=== PATIENT | female | born 1960 | race Hispanic/Latino ===

== ENCOUNTER 2019-12-06 20:19 | Emergency (ER) | payer BC ==
[~2019-12-06] VITALS: Ht 160 cm; Wt 88.5 kg
[2019-12-06] MEDS ORDERED: TETANUS/DIPHTHERIA TOX ADULT 0.5 ML SYR IM ONE (20:45)
--- NOTE | 2019-12-06 21:16 | Diagnostic Imaging Report ---
HUMERUS 2 VIEW LT - HOPD, FOREARM 2 VIEW LT -HOPD, HAND 2 VIEW LT - HOPD - Multiple views HISTORY: fall COMPARISON: None available. FINDINGS: Bones: No acute displaced fracture. Osseous alignment is within normal limits. Joints: The joint spaces are well-maintained. Soft tissues: The soft tissues appear unremarkable. IMPRESSION: No acute radiographic abnormality. Signed by: Bethel Heath MD on 12/06/2019 9:12 PM
[2019-12-06] MEDS ORDERED: NAPROSYN500 MG PO (21:33)
[2019-12-06] MEDS ORDERED: TETANUS/DIPHTHERIA TOX ADULT 0.5 ML SYR ONE (21:39)
== END 2019-12-06 21:44 | disposition home or self-care (01) ==
LOC: FSED 20:19
DX: S53.402A Unspecified sprain of left elbow, initial encounter (principal); S63.502A Unspecified sprain of left wrist, initial encounter; S80.212A Abrasion, left knee, initial encounter; W01.0XXA Fall on same level from slipping, tripping and stumbling without subsequent striking against object, initial encounter; Y93.01 Activity, walking, marching and hiking; Y92.008 Other place in unspecified non-institutional (private) residence as the place of occurrence of the external cause; I10 Essential (primary) hypertension; E11.9 Type 2 diabetes mellitus without complications
CPT/HCPCS: 90471; 90714; 96372; 99284